=== PATIENT | male | born 1950 | race American Indian/Alaskan Native ===

== ENCOUNTER → 2017-09-25 | Day surgery (SDC) | payer MEDICARE ==
[2017-09-24 09:33] VITALS: BMI 35.9
[~2017-09-25] MED LIST: LACTATED RINGERS 1,000 ML IV SCH; LIDOCAINE 1% 20 ML VIAL (10MG/ML) FOR IV START INTRADERMA ONE; PROPOFOL 10 MG/ML 20 ML VIAL IV ONE
[2017-09-25 10:15] VITALS: RESP 16; TEMP 98.3
--- NOTE | 2017-09-25 11:06 | P.PCN ---
Date of Procedure: 09/25/17 Procedure(s) Performed: BRIEF HISTORY: Patient is a 66-year-old pleasant male, scheduled for an elective colonoscopy as a part of evaluation of Hemoccult-positive stool. PROCEDURE PERFORMED: Colonoscopy. PREOPERATIVE DIAGNOSIS: Hemoccult-positive stool. IV sedation per Anesthesia. PROCEDURE: After informed consent was obtained, the patient, was brought into the endoscopy unit. IV sedation was administered by Anesthesia under continuous monitoring. Digital rectal examination was normal. Initially the Olympus CF- 160 flexible video colonoscope was then inserted in the rectum, gradually advanced into the cecum without any difficulty. Careful examination was performed as the scope was gradually being withdrawn. Ileocecal valve and the appendiceal orifice were visualized and appeared normal. Prep was excellent. Mucosa of the cecum, ascending colon, transverse colon, descending colon, sigmoid colon, and rectum appeared normal. Scattered sigmoid diverticula seen. Retroflexion was performed in the rectum and no lesions were seen. The patient tolerated the procedure well. IMPRESSION: Normal-appearing colon from rectum to cecum with no evidence of colorectal neoplasia Scattered sigmoidal diverticulosis RECOMMENDATIONS: Findings of this examination were discussed with the patient as well as his family. He was advised to have a repeat screening colonoscopy in 10 years.
[2017-09-25 11:11] VITALS: PULSE 66
[2017-09-25 11:37] VITALS: BP 116/60
== END ==
LOC: ORWHC2ENDO 09:09
PROVIDERS: ATTEND Internal Medicine Gastroenterology
DX: K57.30 Diverticulosis of large intestine without perforation or abscess without bleeding (principal); I10 Essential (primary) hypertension; E78.5 Hyperlipidemia, unspecified; G47.33 Obstructive sleep apnea (adult) (pediatric); Z79.82 Long term (current) use of aspirin; Z79.899 Other long term (current) drug therapy
CPT/HCPCS: 45378; J2704

== ENCOUNTER → 2023-10-22 | Outpatient (CLI) | payer MEDICARE ==
--- NOTE | 2023-10-22 12:12 | CT ---
EXAMINATION TYPE: CT left knee - [facility] Protocol DATE OF EXAM: 10/22/2023 COMPARISON: None HISTORY: Unilateral primary osteoarthritis, left knee CT DLP: 1231 mGycm Axial , sagittal and coronal images are obtained. There is postsurgical change involving the vertebral column is hypertrophic arthropathy of the SI ivory nts. Diverticulosis. Bilateral hypertrophic arthropathy of the hips correlate femoral head is in the abdomen. There is severe arthropathy of the medial compartment knee joint. Marginal spurring is seen involving the joint spaces. Mild arthropathy of the lateral compartment patella femoral. No erosive changes. M ild demineralization. Vascular calcifications noted there is artifact which limits evaluation soft ti ssue findings are suspicious for a Ferrara cyst measuring 5 cm trace amount of fluid is present. Athero sclerotic change is Evaluation of the ankle demonstrates well-corticated density adjacent to the medial malleolus on the right suggestive of remote trauma. IMPRESSION: 1. Severe osteoarthritis left knee. 2. Bilateral hip arthropathy correlate femoral acetabular impingement.
== END | disposition home or self-care (01) ==
LOC: RADCTMAIN 10:35
PROVIDERS: ATTEND Orthopaedic Surgery
DX: M17.12 Unilateral primary osteoarthritis, left knee (principal); M25.852 Other specified joint disorders, left hip; M25.851 Other specified joint disorders, right hip

== ENCOUNTER → 2023-10-28 | Outpatient (CLI) | payer MEDICARE ==
[2023-10-28 09:03] LABS: INR 0.9 (<1.2); Partial Thromboplastin Time 25.5 sec (22.0-30.0); Prothrombin Time 10.4 sec (10.0-12.5)
[2023-10-28 15:59] LABS: HCT 43.2 % (39.6-50.0); HGB 14.5 g/dL (13.0-17.0); MCH 34.6 pg (27.0-32.0); MCHC 33.6 g/dL (32.0-37.0); MCV 103.1 FL (80.0-97.0); NRBC Per 100 WBC 0 X 10*3/uL (0.00-0.01); Platelet Count 233 X 10*3/uL (140-440); RBC 4.19 X 10*6/uL (4.40-5.60); RDW 12.1 % (11.5-14.5); WBC 9.33 X 10*3/uL (4.50-10.00)
[2023-10-28 16:12] LABS: ALT 21 U/L (10-49); AST 22 U/L (14-35); Albumin 4.3 g/dL (3.8-4.9); Albumin/Globulin Ratio 1.48 Ratio (1.60-3.17); Alkaline Phosphatase 71 U/L (41-126); Blood Urea Nitrogen 26.4 mg/dL (9.0-27.0); Calcium 9.8 mg/dL (8.7-10.3); Carbon Dioxide 26.9 mmol/L (21.6-31.8); Chloride 103 mmol/L (96-109); Globulin 2.9 g/dL (1.6-3.3); Glucose 133 mg/dL (70-110); Sodium 139 mmol/L (135-145); Total Bilirubin 0.7 mg/dL (0.3-1.2); Total Protein 7.2 g/dL (6.2-8.2)
[2023-10-28 16:59] LABS: Appearance,Urine Clear (Clear); Bilirubin,Urine Negative (Negative); Blood,Urine Negative (Negative); Color,Urine Yellow (Yellow); Ketones,Urine Negative (Negative); Nitrite,Urine Negative (Negative); Urobilinogen,Urine 0.2 E.U./DL
== END | disposition home or self-care (01) ==
LOC: LABWHC1 07:55
PROVIDERS: ATTEND Orthopaedic Surgery
DX: Z01.818 Encounter for other preprocedural examination (principal); M17.12 Unilateral primary osteoarthritis, left knee
CPT/HCPCS: 36415; 80053; 81003; 83036; 85027; 85610; 85730; 87070; 93005

== ENCOUNTER 2023-11-15 07:33 | Day surgery (SDC) | payer MEDICARE ==
[~2023-11-15 07:33] MED LIST changes: +ACETAMINOPHEN TAB 500 MG TAB PO PRN; +DOCUSATE 100 MG CAP PO PRN; +FAMOTIDINE 20 MG/2 ML VIAL IVP PRN; +HYDROmorphone 0.5 MG/0.5 ML SYRINGE IVP PRN; +KETOROLAC 15 MG/ML 1 ML VIAL IVP PRN; -LACTATED RINGERS 1,000 ML IV SCH; -LIDOCAINE 1% 20 ML VIAL (10MG/ML) FOR IV START INTRADERMA ONE; +MIDAZOLAM 2 MG/2 ML VIAL IV PRN; +ONDANSETRON 4 MG/2 ML VIAL IVP PRN; -PROPOFOL 10 MG/ML 20 ML VIAL IV ONE; +ROPIVACAINE 246.25 MG, EPINEPHrine 0.5 MG, KETOROLAC (30 mg/mL) 30 MG, cloNIDine HCL/PF... MISCELLANE PRN; +TRANEXAMIC 1,000 MG/100ML-NACL 1,000 MG in SALINE 1 100ML.BAG IV PRN; +TRANEXAMIC 1,000 MG/100ML-NACL 1,000 MG in SALINE 1 100ML.BAG IVPB PRN; +ceFAZolin 3 GM in SODIUM CHLORIDE 0.9% 100 ML IVPB PRN; +oxyCODONE ER 10 MG TAB.ER.12H PO PRN
[2023-11-15] MEDS: DEXAMETHASONE SOD PHOSPHATE 10 MG/ML 1 ML VIAL IV PRN ×2 (08:28→08:31)
[2023-11-15] MEDS: LACTATED RINGERS 1,000 ML IV SCH ×2 (08:28→09:13)
[2023-11-15 08:31] LABS: Glucose,Whole Blood 119 mg/dL (70-110)
--- NOTE | 2023-11-15 08:52 | P.ANPRN ---
Procedure Note - Anesthesia - Nerve Block Performed Left Adductor Canal Single Time Out Performed: Yes Date of Procedure: 11/15/23 Procedure Start Time: Procedure Stop Time: Location of Patient: PreOp Indication: Acute Post-Operative Pain, Analgesia, Requested by Surgeon Sedation Type: Sedate with meaningful contact maintained Preparation: Sterile Prep Position: Supine Catheter: None Needle Types: Pajunk Needle Gauge: 21 Ultrasound used to visualize needle placement: Yes Ultrasound used to observe medication spread: Yes Injectate: 0.5% Ropivacaine (see comment for volume) (Ropiv 10ml+NS10ml) Blood Aspirated: No Pain Paresthesia on Injection Noted: No Resistance on Injection: Normal Image Stored and Saved: Yes Events: Uneventful and Well Tolerated
--- NOTE | 2023-11-15 08:54 | P.ANPRN ---
Procedure Note - Anesthesia - Nerve Block Performed Left iPack Single Time Out Performed: Yes Date of Procedure: 11/15/23 Procedure Start Time: 08:35 Procedure Stop Time: 08:40 Location of Patient: PreOp Indication: Acute Post-Operative Pain, Analgesia, Requested by Surgeon Sedation Type: Sedate with meaningful contact maintained Preparation: Sterile Prep Position: Right Lateral Needle Types: Pajunk Needle Gauge: 21 Ultrasound used to visualize needle placement: Yes Ultrasound used to observe medication spread: Yes Injectate: 0.5% Ropivacaine (see comment for volume) (Ropiv 15ml+NS10ml) Blood Aspirated: No Pain Paresthesia on Injection Noted: No Resistance on Injection: Normal Image Stored and Saved: Yes Events: Uneventful and Well Tolerated
[2023-11-15] MEDS: ROPIVACAINE/EPI/CLONIDINE/KET 50 ML SYRINGE MISCELLANE PRN ×2 (09:04→11:05)
[2023-11-15] MEDS ORDERED: LIDOCAINE 1% INJ 10MG/ML (20 ML MDV) ONE (09:17)
[2023-11-15] MEDS ORDERED: fentaNYL (PF) 50 MCG/ML 2 ML AMP ONE (09:17)
[2023-11-15] MEDS ORDERED: ROPIVACAINE 5 MG/ML 30 ML VIAL ONE (09:17)
[2023-11-15] MEDS ORDERED: NEOSTIGMINE 1 MG/ML 10 ML VIAL ONE (09:17)
[2023-11-15] MEDS ORDERED: GLYCOPYRROLATE 0.2 MG/ML 2 ML VIAL ONE (09:17)
[2023-11-15] MEDS ORDERED: TRANEXAMIC 1,000 MG/100ML-NACL PREMIX BAG ONE (09:17)
[2023-11-15] MEDS ORDERED: HYDROmorphone (PF) 1 MG/ML ONE (09:17)
[2023-11-15] MEDS ORDERED: ePHEDrine 50 MG/ML 1 ML VIAL ONE (09:17)
[2023-11-15] MEDS ORDERED: PROPOFOL 10 MG/ML 20 ML VIAL IV ONE (09:17)
[2023-11-15] MEDS ORDERED: PHENYLEPHRINE-0.9% NACL SYG 1,000 MCG/10 ML SYRINGE ONE (09:17)
[2023-11-15] MEDS ORDERED: MIDAZOLAM 2 MG/2 ML VIAL ONE (09:17)
[2023-11-15] MEDS ORDERED: SUCCINYLCHOLINE CHLORIDE 200 MG/10 ML VIAL IV ONE (09:17)
[2023-11-15] MEDS ORDERED: SODIUM CHLORIDE 0.9% (PF) 10 ML VIAL ONE (09:17)
[2023-11-15] MEDS ORDERED: ROCURONIUM 10 MG/ML (5 ML VIAL) IV ONE (09:17)
[2023-11-15] MEDS ORDERED: LACTATED RINGERS 1,000 ML IV ONE (11:37)
[2023-11-15] MEDS ORDERED: hydrOXYzine pamoate 25 MG CAP PO PRN (12:08)
[2023-11-15] MEDS ORDERED: diazePAM 5 MG TAB PO PRN (12:08)
[2023-11-15] MEDS ORDERED: HYDROmorphone 0.5 MG/0.5 ML SYRINGE IVP PRN (12:08)
[2023-11-15] MEDS ORDERED: MAGNESIUM HYDROXIDE 2,400 MG/30 ML CUP PO PRN (12:08)
[2023-11-15] MEDS ORDERED: HYDROcodone/APAP 5-325MG 1 EACH TAB PO PRN (12:08)
[2023-11-15] MEDS ORDERED: ONDANSETRON 4 MG/2 ML VIAL IVP PRN (12:08)
[2023-11-15] MEDS ORDERED: bisacodyL 10 MG SUPP RECTAL PRN (12:08)
[2023-11-15] MEDS ORDERED: NALOXONE 0.4 MG/ML 1 ML VIAL IV PRN (12:08)
--- NOTE | 2023-11-15 12:08 | P.OP ---
Date of Procedure: 11/15/23 Preoperative Diagnosis: 1. Left severe knee osteoarthritis 2. Coronary artery disease Postoperative Diagnosis: Same Procedure(s) Performed: 1. Left total knee arthroplasty 2. Computer assisted musculoskeletal navigation using CT/MRI images Implants: 1. [place] [employer] CR Femur Size #6 2. [place] [employer] Erwin Tibial Base Size #6 3. [place] [employer] CS poly Size #9 4. Verena Triathlon all poly patella, Size #38 Anesthesia: GENI, regional Surgeon: Todd Oleary Estimated Blood Loss (ml): 100 Pathology: none sent Condition: stable Disposition: PACU Indications for Procedure: I met with the patient preoperatively in the office setting and discussed treatment of their symptomatic knee arthritis. They failed a long course of nonsurgical treatment and elected to proceed with an elective total knee replacement. I discussed the potential risks and complications at length and gave them ample time to ask questions. Risks discussed included: risks from anesthesia, superficial site surgical infection, acute and/or chronic peripro sthetic joint infection, delayed wound healing, drainage, wound necrosis, instability, stiffness, stiffness requiring manipulation and/or revision surgery, damage to local blood vessels or nerves, aseptic loosening of the implants, extensor mechanism issues including disruption, patellar maltracking, avascular necrosis etc., continued or worsened knee pain, generalized dissatisfaction with surgical outcome, need for revision surgery, an inability to regain preinjury level of function, DVT, PE, other medical complications, and possibly loss of life or limb. The patient voiced their understanding that while these are the most common complications other less common complications are possible. They provided both their verbal and written consent to go forward with surgery. Operative Findings: Severe tricompartmental arthritis. During the procedure according to the anesthesia team the patient's cardiac rhythm showed a transient bundle branch block. He was otherwise stable throughout the procedure. He was evaluated intraoperatively by the attending anesthesiologist immediately following the transient bundle branch block. Description of Procedure: The patient was identified in preoperative holding and the correct operative extremity was verified and marked with a marker. I reviewed the consent form with the patient at length. All of their questions were answered. The patient was given a block by anesthesia. They were then brought back to the operating room. They were transferred onto the operating room table where a general anesthetic, preoperative antibiotics, and tranexamic acid were administered by anesthesia. A tourniquet was applied to the proximal aspect of the operative extremity. The contralateral extremity was padded under the heel and secured to the operating room table with a nonsterile blue towel and tape. The ipsilateral arm was carefully draped across the patient's chest and secured with a pillow and foam. A post was applied over the lateral aspect of the ipsilateral thigh and a bolster was placed under the ipsilateral foot. I verified that the operative extremity was stable and the knee was flexed to 90. The operative extremity was then placed in a leg treviño, nonsterile drapes were applied, and the extremity was prepped and draped sterilely in the standard sterile fashion. Prior to starting surgery timeout was performed identifying the correct patient, operative extremity, and procedure. The leg was then elevated, exsanguinated with an Esmarch bandage, and the tourniquet was inflated. An anterior midline incision was made sharply with a scalpel. Once I had dissected deep to the superficial fascial layer medial and lateral flaps were elevated. A medial parapatellar arthrotomy was created. Upon opening the knee joint there were diffuse arthritic changes in all 3 compartments. The anterior horn of the medial meniscus were sharply released and a medial release was pe rformed around the posterior medial corner of the knee to facilitate retractor placement. The fat pad was excised with electrocautery. The patella was found to be severely arthritic and a provisional cut was made with a sagittal saw to facilitate mobilization of the extensor mechanism during the procedure. Remnants of the ACL and PCL were then excised from the notch. 4 mm pins were then placed within the incision in the medial distal femur and proximal tibia. Arrays were applied to the pins and I verified they were completely tightened. The knee was then registered with the Nutrino robot and manipulations in implant position were made to balance the knee and opitmize implant position. Using the Nutrino robotic saw all cuts were made in accordance with our plan. After all bony fragments had been removed the cuts were verified with the planar probe. The tibia was then subluxed forward and sized. The knee was brought into flexion and a lamina shirring machine operator was placed to allow removal of the meniscal remnants both medially and laterally as well as posterior osteophytes. Local anesthetic was then infiltrated around the joint capsule. Trial implants were then placed within the knee. Range of motion and collateral ligament tension was then evaluated. Adjustments in implant size and position were then made accordingly. Once the knee was felt to be appropriately balanced the Merlin pins were removed. The patella was then recut, sized, and punched. A trial patellar button was then placed. With the trial components in place, the patella tracked midline. The femur was then drilled and the trial component removed. The trial tibial component was then appropriately rotated, pinned, and prepared for the keel. All trial components were then removed from the knee. The knee was thoroughly irrigated with pulsatile lavage. Cement was prepared via vacuum mixing in a bowl on the back table. I then hand pressurized cement into the femur and tibia and placed the implants beginning with the tibial base tray and poly liner, femoral component, and finally the patellar button. All extruded cement was removed including from the pin sites. Once the cement had hardened the knee was evaluated one final time with the final polyethylene liner in place. The knee had full extension and flexion and felt stable to varus and valgus stress throughout the arc of motion. The tourniquet was released and with the tourniquet down the patella tracked midline. All bleeders were controlled with electrocautery. The knee was then soaked for 3 minutes with a dilute Betadine soak. The knee was thoroughly irrigated using 3 L of sterile saline and pulsatile lavage. A deep drain was placed. The extensor mechanism was then reapproximated using pop off Vicryl sutures followed by a running barbed suture. The knee was then closed in layers with a 0 strata fix for the deep fascial layer, 2-0 strata fix for the superficial subcutaneous layer and Monocryl and Steri-Strips for the skin. A sterile dressing and drain sponge were applied. I verified that all instrument, sponge, and sharp counts were correct. The patient was then transferred off the operating room table, extubated, and brought to recovery having tolerated the procedure well. PLAN: The patient can weight-bear as tolerated on the operative extremity. DVT prophylaxis with aspirin 81 mg twice a day based on preoperative risk stratification. Based on the intraoperative bundle-branch block a postoperative internal medicine and cardiology consult will be obtained. A 12-lead EKG was obtained immediately upon entering PACU. Follow-up in the office in 2 weeks for wound check and x-rays of the knee including an AP and lateral.
--- NOTE | 2023-11-15 13:02 | XR ---
EXAMINATION TYPE: XR knee limited LT DATE OF EXAM: 11/15/2023 COMPARISON: NONE HISTORY: 72-year-old male evaluation for postoperative abnormality and alignment TECHNIQUE: 2 views FINDINGS: Images show placement of left total knee arthroplasty. Both distal femoral and proximal tib ial components of prosthesis are well seated without fracture. Alignment grossly anatomic. Anterior s oft tissue swelling with scattered soft tissue air as well as intra-articular air related to recent o peration. A surgical drain is also present. IMPRESSION: Uncomplicated postoperative appearance left total knee arthroplasty.
--- NOTE | 2023-11-15 16:14 | P.CONS ---
History of Present Illness - Reason for Consult Consult date: 11/15/23 Medical Management Requesting physician: Todd Oleary - History of Present Illness History of Presenting Illness: Patient is a very pleasant 72-year-old male with a past medical history of carotid artery stenosis, hypertension, hyperlipidemia, valvular heart disease with aortic and mitral regurgitation and osteoarthritis. Patient is currently admitted to orthopedic surgery team status post left total knee arthroplasty completed by Dr. Oleary secondary to severe left knee osteoarthritis. We were consulted for medical management throughout patient's hospitalization. Upon further evaluation and it was reported that patient had an intraoperative arrhythmia resulting in new-onset left bundle branch block. EKG completed showing sinus bradycardia at 57 bpm with a new onset left bundle branch block. Upon further review and comparison of previous EKG's, it does not appear the patient has history of left bundle branch block and patient and family deny known history. Patient reports being asymptomatic to any cardiac complaints or any complaints for that matter. Patient denies having any headache, lightheadedness, dizziness, chest pain, palpitations, shortness of breath, nausea, vomiting, or experiencing any numbness/tingling in his extremities. Patient's at bedside does report that her has been experiencing exertional shortness of breath ongoing for the past couple months and they did discuss this with his golf cart attendant during his preoperative workup but reports cardiac workup was negative and recent stress test completed earlier this month was also negative. Review of systems: Pertinent positives and negatives as discussed in HPI, a complete review of systems was performed and all other systems are negative. Physical exam: Vital signs reviewed and stable. General: Nontoxic, no distress and appears stated age. Derm: Skin warm and dry, normal coloration for ethnicity. Head: Atraumatic, normocephalic and symmetric. Eyes: EOMs intact, no lid lag, and anicteric sclera Mouth: no lip lesions, mucus membranes moist Cardiovascular: regular rate and rhythm with normal S1S2, systolic murmur, positive posterior tibial pulses bilaterally, and cap refill < 2 seconds. Lungs: Respirations even, regular, and unlabored on room air. Lungs CTA bilaterally, no rhonchi, no rales, no wheezing, and no accessory muscle usage. Abdominal: soft, nontender to palpation, no guarding, no appreciable organomegaly Ext: No gross muscle atrophy, no edema, no contractures movement and sensation intact. Postoperative dressings/Tegaderm in place to left knee currently clean dry and intact. Neuro: Speech clear, face symmetrical and CN II-XII grossly intact with no noted focal neuro deficits Psych: Alert and oriented to person, place, time, and situation. Appropriate and pleasant affect. Assessment and Plan of Care: New onset left bundle branch block -Order stat CBC, BMP, magnesium, troponin, and TSH. -Cardiology consulted, appreciate further recommendations -Order placed for continuous Telemetry monitoring -Hold propranolol and patient to continue with amlodipine/benazepril 5/20 mg nightly and pravastatin 80 mg nightly. -Order placed for Echocardiogram Status post left total knee arthroplasty Severe osteoarthritis Management per primary admitting orthopedic surgery team including DVT prophylaxis, pain management, wound/dressing changes, weightbearing, and PT/OT. Currently DVT prophylaxis with aspirin 81 mg twice daily. Hypertension Hyperlipidemia History of carotid artery stenosis History of valvular heart disease with aortic and mitral regurgitation Propranolol 20 mg twice daily is currently being held secondary to new onset left bundle branch block with sinus bradycardia. Patient to otherwise continue daily medication regimen with aspirin 81 mg daily, pravastatin 80 mg nightly, and amlodipine/benazepril 520 milligrams nightly. Data and imaging reviewed: -EKG completed showing sinus bradycardia at 57 bpm with a new onset left bundle branch block upon personal review and interpretation. Upon further review and comparison of previous EKG's in chart, it does not appear the patient has history of left bundle branch block and patient and family deny known history. -Vital signs reviewed and stable. Blood pressure 130/69, heart rate 53, respiratory rate 18, temp 98.2F, SpO2 of 97% on room air. -Upon follow-up review of ordered STAT labs including CBC/BMP/mag/troponin... CBC showing mild macrocytosis with MCV of 103.3 otherwise normal findings. BMP was unremarkable with the exception of mild prerenal azotemia with BUN of 39. Glucose 169. Magnesium normal findings at 1.9. And troponin was negative at less than 0.012. Thank you for allowing us to participate in the care of this pleasant patient. Do not hesitate to contact us with questions. Someone can be reached from the [facility] hospitalist group all hours of the day at [phone] or via perfect serve. Patient was seen independently by Nurse Practitioner. This document was prepared using [employer] dictation software. Please allow for errors in business law teacher while rare they do occur. Brandon Herrera NP rendered care for this patient independently, reviewed the findings and plan as documented in the note above. I did not physically speak with or examine the patient on this date. Past Medical History Past Medical History: Chest Pain / Angina, Hyperlipidemia, Hypertension, Osteoarthritis (OA) Additional Past Medical History / Comment(s): NO LONGER USES CPAP MACHINE (HX OF SURGERY FOR SLEEP APNEA), HX OF VERTIGO (NO PROBLEM NOW), BACK PAIN ruptured 3 discs. , EPISODE OF CHEST PAIN X1., hx STOOL TESTED POSITIVE FOR BLOOD. hx tremors. hx of ringworm to left leg - tx & gone History of Any Multi-Drug Resistant Organisms: MRSA Year Discovered:: 07/2015 MDRO Source:: rt knee Past Surgical History: Back Surgery, Joint Replacement Additional Past Surgical History / Comment(s): 08/02/15 Total R knee ., DEC-1997 TRIPLE SPINAL FUSION WITH BONE GRAFT TAKEN FROM HIS HIP rods and screws., SINUS SURGERY ,. COLONOSCOPY Past Anesthesia/Blood Transfusion Reactions: No Reported Reaction Past Psychological History: No Psychological Hx Reported Additional Psychological History / Comment(s): . Smoking Status: Never smoker Past Alcohol Use History: Occasional Past Drug Use History: None Reported - Past Family History Father Family Medical History: Myocardial Infarction ([place]) Additional Family Medical History / Comment(s): of massive heart attack Brother(s) Family Medical History: Cancer Additional Family Medical History / Comment(s): oldest brother [place], another brother of liver issues from alcohol Medications and Allergies Home Medications Medication Instructions Recorded Confirmed Type Ascorbic Acid [Vitamin C] 500 mg PO DAILY 07/26/15 11/15/23 History Fish Oil/Dha/Epa [Fish Oil 1,200 1 cap PO DAILY 07/26/15 11/15/23 History mg Fish Oil] Glucosamine Sulfate 1,200 mg PO DAILY 07/26/15 11/15/23 History Lysine 500 mg PO DAILY 07/26/15 11/15/23 History Multivitamin [Men's Multi-Vitamin] 1 tab PO DAILY 07/26/15 11/15/23 History Pravastatin Sodium [Pravachol] 80 mg PO HS 07/26/15 11/15/23 History Vitamin E (Dl,Tocopheryl Acet) 400 unit PO DAILY 07/26/15 11/15/23 History [Vitamin E (400 Iu = 180 mg)] amLODIPine BESYLATE/BENAZEPRIL 1 tab PO HS 07/26/15 11/15/23 History [Amlodipine-Benazepril 5-20 mg] Docusate [Colace] 200 mg PO DAILY 09/24/17 11/15/23 History Aspirin EC [Ecotrin Low Dose] 81 mg PO DAILY 01/12/23 11/15/23 History Cholecalciferol [Vitamin D3 (25 50 mcg PO DAILY 01/12/23 11/15/23 History Mcg = 1000 Iu)] Zinc Gluconate [Zinc] 50 mg PO DAILY 01/12/23 11/15/23 History Cinnamon Bark [Cinnamon] 2,000 mg PO DAILY 11/08/23 11/15/23 History Propranolol [Inderal] 20 mg PO BID 11/08/23 11/15/23 History Unk Vitamin K 1 tab PO DAILY 11/08/23 11/15/23 History Aspirin 81 mg PO BID #60 tab 11/15/23 Rx Diclofenac Sodium [Voltaren] 75 mg PO BID #60 tab 11/15/23 Rx Docusate [Colace] 100 mg PO BID #28 capsule 11/15/23 Rx HYDROcodone/APAP 5-325MG [Marina 1 - 2 tab PO Q6HR PRN #32 tab 11/15/23 Rx 5-325] Omeprazole 40 mg PO DAILY #30 cap 11/15/23 Rx Allergies Allergy/AdvReac Type Severity Reaction Status Date / Time No Known Allergies Allergy Verified 11/15/23 07:54 Physical Exam Osteopathic Statement: *. No significant issues noted on an osteopathic structural exam other than those noted in the History and Physical/Consult. Vitals: Vital Signs Temp Pulse Resp BP Pulse Ox 11/15/23 15:08 98.2 F 53 L 18 130/69 97 11/15/23 15:00 55 L 16 98/54 99 11/15/23 14:45 53 L 16 98/54 98 11/15/23 14:30 52 L 16 96/53 96 11/15/23 14:15 55 L 16 104/57 97 11/15/23 14:00 54 L 18 106/60 99 11/15/23 13:45 72 18 105/60 99 11/15/23 13:30 56 L 18 115/63 98 11/15/23 13:10 52 L 18 113/65 98 11/15/23 12:55 61 16 116/59 97 11/15/23 12:40 54 L 16 105/60 97 11/15/23 12:25 55 L 16 108/61 98 11/15/23 12:05 53 L 16 103/63 99 11/15/23 11:50 59 L 16 102/62 99 11/15/23 08:53 54 L 18 121/64 98 11/15/23 08:07 97.6 F 56 L 20 134/73 96 Intake and Output 11/15/23 11/15/23 11/15/23 06:59 14:59 22:59 Intake Total 1800 Output Total 200 Balance 1600 Intake: IV 1800 Output: Estimated Blood Loss 200 Other: Weight 122 kg Results CBC & Chem 7: 11/15/23 16:15 11/15/23 16:15 Labs: Abnormal Lab Results - Last 24 Hours (Table) 11/15/23 Range/Units 08:21 POC Glucose (mg/dL) 119 H (70-110) mg/dL
[2023-11-15] MEDS: ceFAZolin 3 GM in SODIUM CHLORIDE 0.9% 100 ML IVPB SCH (16:29)
[2023-11-15 17:03] LABS: Basophils % (A) 0 %; Eosinophils % (A) 0 %; HCT 41.5 % (39.0-53.0); HGB 13.9 gm/dL (13.0-17.5); Lymphocytes # (A) 0.9 k/uL (1.0-4.8); Lymphocytes % (A) 9 %; MCH 34.7 pg (25.0-35.0); MCHC 33.6 g/dL (31.0-37.0); MCV 103.3 fL (80.0-100.0); Macrocytosis Slight; Mean Platelet Volume 7.4; Monocytes # (A) 0.1 k/uL (0-1.0); Monocytes % (A) 1 %; Neutrophils # (A) 8.7 k/uL (1.3-7.7); Neutrophils % (A) 89 %; Platelet Count 204 k/uL (150-450); RBC 4.01 m/uL (4.30-5.90); RDW 12.2 % (11.5-15.5); WBC 9.8 k/uL (3.8-10.6)
[2023-11-15 17:04] LABS: African American GFR (CKD) 89 (>60 ml/min/1.73 sqM); Anion Gap 12 mmol/L; Blood Urea Nitrogen 35 mg/dL (9-20); Carbon Dioxide 24 mmol/L (22-30); Chloride 103 mmol/L (98-107); Glucose 169 mg/dL (74-99); Magnesium 1.9 mg/dL (1.6-2.3); Non-African American GFR(CKD) 77 (>60 ml/min/1.73 sqM); Sodium 139 mmol/L (137-145)
[2023-11-15] MEDS ORDERED: SENNOSIDES-DOCUSATE SODIUM 1 EACH TAB PO SCH (21:00)
[2023-11-15] MEDS ORDERED: lisinopriL 20 MG TAB PO SCH (21:00)
[2023-11-15] MEDS ORDERED: amLODIPine 5 MG TAB PO SCH (21:00)
[2023-11-15] MEDS ORDERED: PRAVASTATIN SODIUM 80 MG TAB PO SCH (21:00)
[2023-11-15] MEDS: ASPIRIN 81 MG PO SCH (21:13)
[2023-11-15] MEDS: SODIUM CHLORIDE 0.9% 1,000 ML IV SCH ×2 (21:14→23:50)
--- NOTE | 2023-11-15 21:55 | P.CRDCN ---
History of Present Illness History of present illness: HISTORY OF PRESENTING ILLNESS Patient is pleasant 72-year-old male with history of carotid artery stenosis, hypertension, hyperlipidemia, mitral regurgitation and osteoarthritis who follows with Dr. Krishnan. He has been followed for osteoarthritis and has been having progressive knee pain and therefore recommended to undergo knee surgery. He did have preoperative workup and was cleared from a cardiology standpoint for surgery. He denies any chest pain or pressure or significant shortness breath. Patient did have left bundle-branch block intraoperatively and postoperatively and therefore cardiology was recommended. Patient denies any actual chest pain or pressure or shortness breath. He states he feels his normal self. He does have strong family history of arrhythmias as well as CAD and stents and bypass and MIs and his father as well as brothers in their 60s and 70s. Currently is somewhat somnolent however answering all questions appropriately. He did have repeat EKG which shows returned to normal sinus rhythm and no significant left bundle-branch block. REVIEW OF SYSTEMS At the time of my exam: CONSTITUTIONAL: Denies fever or chills. CARDIOVASCULAR: Denies chest pain, shortness of breath, orthopnea, PND or palpitations. RESPIRATORY: Denies cough. GASTROINTESTINAL: Denies abdominal pain, diarrhea, constipation, nausea or vomiting. MUSCULOSKELETAL: Denies myalgias. NEUROLOGIC: Denies numbness, tingling or weakness. ENDOCRINE: Denies fatigue, weight change, polydipsia or polyurina. GENITOURINARY: Denies burning, hematuria or urgency with micturation. HEMATOLOGIC: Denies history of anemia or bleeding. PHYSICAL EXAMINATION Vital signs reviewed. CONSTITUTIONAL: No apparent distress. HEENT: Head is normocephalic. Pupils are equal, round. Sclerae anicteric. Mucous membranes of the mouth are moist. No JVD. No carotid bruit. CHEST EXAMINATION: Lungs are clear to auscultation. No chest wall tenderness is noted on palpation or with deep breathing. HEART EXAMINATION: Regular rate and rhythm. S1, S2 heard. No murmurs, gallops or rub. ABDOMEN: Soft, nontender. Positive bowel sounds. EXTREMITIES: 2+ peripheral pulses, no lower extremity edema and no calf tenderness. NEUROLOGIC EXAMINATION: Patient is awake, alert and oriented x3. ASSESSMENT 1. Left bundle-branch block postoperatively 2. Hypertension 3. Hyperlipidemia 4. Previous sleep apnea 5. Family history of CVA 6. Postoperative knee surgery 7. Asymptomatic sinus bradycardia PLAN Patient with transient left bundle-branch block which was asymptomatic. No significant Scarbosa's criteria to suggest acute coronary syndrome and no significant angina-type symptoms. Discussed with patient and family possible transient bundle-branch blocks which are usually asymptomatic and incidental. Continue to trend troponins for completeness sake and echocardiogram already performed. Patient does have asymptomatic sinus bradycardia and monitor on telemetry. Unless further symptomatic bradycardia restart propranolol tomorrow. Continue monitor however likely will be cleared from a cardiology standpoint 24 hours if asymptomatic. Past Medical History Past Medical History: Chest Pain / Angina, Hyperlipidemia, Hypertension, Osteoarthritis (OA) Additional Past Medical History / Comment(s): NO LONGER USES CPAP MACHINE (HX OF SURGERY FOR SLEEP APNEA), HX OF VERTIGO (NO PROBLEM NOW), BACK PAIN ruptured 3 discs. , EPISODE OF CHEST PAIN X1., hx STOOL TESTED POSITIVE FOR BLOOD. hx tremors. hx of ringworm to left leg - tx & gone History of Any Multi-Drug Resistant Organisms: MRSA Date of last positivie culture/infection: 07/2015 MDRO Source:: rt knee Past Surgical History: Back Surgery, Joint Replacement Additional Past Surgical History / Comment(s): 08/02/15 Total R knee ., DEC-1997 TRIPLE SPINAL FUSION WITH BONE GRAFT TAKEN FROM HIS HIP rods and screws., SINUS SURGERY ,. COLONOSCOPY Past Anesthesia/Blood Transfusion Reactions: No Reported Reaction Past Psychological History: No Psychological Hx Reported Additional Psychological History / Comment(s): . Smoking Status: Never smoker Past Alcohol Use History: Occasional Past Drug Use History: None Reported - Past Family History Father Family Medical History: Myocardial Infarction (HI) Additional Family Medical History / Comment(s): of massive heart attack Brother(s) Family Medical History: Cancer Additional Family Medical History / Comment(s): oldest brother HI, another brother of liver issues from alcohol Medications and Allergies Home Medications Medication Instructions Recorded Confirmed Type Ascorbic Acid [Vitamin C] 500 mg PO DAILY 07/26/15 11/15/23 History Fish Oil/Dha/Epa [Fish Oil 1,200 1 cap PO DAILY 07/26/15 11/15/23 History mg Fish Oil] Glucosamine Sulfate 1,200 mg PO DAILY 07/26/15 11/15/23 History Lysine 500 mg PO DAILY 07/26/15 11/15/23 History Multivitamin [Men's Multi-Vitamin] 1 tab PO DAILY 07/26/15 11/15/23 History Pravastatin Sodium [Pravachol] 80 mg PO HS 07/26/15 11/15/23 History Vitamin E (Dl,Tocopheryl Acet) 400 unit PO DAILY 07/26/15 11/15/23 History [Vitamin E (400 Iu = 180 mg)] amLODIPine BESYLATE/BENAZEPRIL 1 tab PO HS 07/26/15 11/15/23 History [Amlodipine-Benazepril 5-20 mg] Docusate [Colace] 200 mg PO DAILY 09/24/17 11/15/23 History Aspirin EC [Ecotrin Low Dose] 81 mg PO DAILY 01/12/23 11/15/23 History Cholecalciferol [Vitamin D3 (25 50 mcg PO DAILY 01/12/23 11/15/23 History Mcg = 1000 Iu)] Zinc Gluconate [Zinc] 50 mg PO DAILY 01/12/23 11/15/23 History Cinnamon Bark [Cinnamon] 2,000 mg PO DAILY 11/08/23 11/15/23 History Propranolol [Inderal] 20 mg PO BID 11/08/23 11/15/23 History Unk Vitamin K 1 tab PO DAILY 11/08/23 11/15/23 History Aspirin 81 mg PO BID #60 tab 11/15/23 Rx Diclofenac Sodium [Voltaren] 75 mg PO BID #60 tab 11/15/23 Rx Docusate [Colace] 100 mg PO BID #28 capsule 11/15/23 Rx HYDROcodone/APAP 5-325MG [Amigo 1 - 2 tab PO Q6HR PRN #32 tab 11/15/23 Rx 5-325] Omeprazole 40 mg PO DAILY #30 cap 11/15/23 Rx Allergies Allergy/AdvReac Type Severity Reaction Status Date / Time No Known Allergies Allergy Verified 11/15/23 07:54 Physical Exam Vitals: Vital Signs Temp Pulse Resp BP Pulse Ox 11/15/23 19:19 97.4 F L 72 17 101/62 96 11/15/23 15:08 98.2 F 53 L 18 130/69 97 11/15/23 15:00 55 L 16 98/54 99 11/15/23 14:45 53 L 16 98/54 98 11/15/23 14:30 52 L 16 96/53 96 11/15/23 14:15 55 L 16 104/57 97 11/15/23 14:00 54 L 18 106/60 99 11/15/23 13:45 72 18 105/60 99 11/15/23 13:30 56 L 18 115/63 98 11/15/23 13:10 52 L 18 113/65 98 11/15/23 12:55 61 16 116/59 97 11/15/23 12:40 54 L 16 105/60 97 11/15/23 12:25 55 L 16 108/61 98 11/15/23 12:05 53 L 16 103/63 99 11/15/23 11:50 59 L 16 102/62 99 11/15/23 08:53 54 L 18 121/64 98 11/15/23 08:07 97.6 F 56 L 20 134/73 96 Intake and Output 11/15/23 11/15/23 11/15/23 06:59 14:59 22:59 Intake Total 1800 Output Total 200 Balance 1600 Intake: IV 1800 Output: Estimated Blood Loss 200 Other: Voiding Method Toilet # Voids 0 Weight 122 kg Results 11/15/23 16:15 11/15/23 16:15 Cardiac Enzymes 11/15/23 Range/Units 16:15 Troponin I <0.012 (0.000-0.034) ng/mL CBC 11/15/23 Range/Units 16:15 WBC 9.8 (3.8-10.6) k/uL RBC 4.01 L (4.30-5.90) m/uL Hgb 13.9 (13.0-17.5) gm/dL Hct 41.5 (39.0-53.0) % Plt Count 204 (150-450) k/uL Comprehensive Metabolic Panel 11/15/23 Range/Units 16:15 Sodium 139 (137-145) mmol/L Potassium 5.0 (3.5-5.1) mmol/L Chloride 103 (98-107) mmol/L Carbon Dioxide 24 (22-30) mmol/L BUN 35 H (9-20) mg/dL Creatinine 0.97 (0.66-1.25) mg/dL Glucose 169 H (74-99) mg/dL Calcium 9.0 (8.4-10.2) mg/dL Current Medications Generic Name Dose Route Start Last Admin Trade Name Freq PRN Reason Stop Dose Admin Hydrocodone Bitart/Acetaminophen 1 each 11/15/23 12:08 Hydrocodone/Apap 5-325mg 1 Each Tab PO 12/15/23 12:09 Q6HR PRN Pain Scale 1 to 5 Hydrocodone Bitart/Acetaminophen 1 each 11/15/23 12:08 Hydrocodone/Apap 10-325mg 1 Each Tab PO 12/15/23 12:09 Q6H PRN Pain Scale 6 to 10 Amlodipine Besylate 5 mg 11/15/23 21:00 11/15/23 21:14 Amlodipine 5 Mg Tab PO Not Given HS [facility] Ascorbic Acid 500 mg 11/16/23 09:00 Ascorbic Acid 500 Mg Tab PO DAILY [facility] Aspirin 81 mg 11/15/23 21:00 11/15/23 21:13 Aspirin 81 Mg PO 12/15/23 21:01 81 mg BID [facility] Administration Bisacodyl 10 mg 11/15/23 12:08 Bisacodyl 10 Mg Supp RECTAL 12/15/23 12:09 DAILY PRN Constipation Cholecalciferol 50 mcg 11/16/23 09:00 Cholecalciferol 25 Mcg (1000 Iu) Tablet PO DAILY [facility] Diazepam 2.5 mg 11/15/23 12:08 Diazepam 5 Mg Tab PO 12/15/23 12:09 Q8HR PRN Mild Spasms Docusate Sodium 200 mg 11/16/23 09:00 Docusate 100 Mg Cap PO DAILY [facility] Hydromorphone HCl 0.5 mg 11/15/23 07:05 Hydromorphone 0.5 Mg/0.5 Ml Syringe IVP 11/15/23 23:00 Q5M PRN Phase 1 or 2 - Pain Control Hydromorphone HCl 0.5 mg 11/15/23 12:08 Hydromorphone 0.5 Mg/0.5 Ml Syringe IVP 12/15/23 12:09 Q3HR PRN Pain Scale 7 to 10 Hydroxyzine Pamoate 25 mg 11/15/23 12:08 Hydroxyzine Pamoate 25 Mg Cap PO 12/15/23 12:09 Q4HR PRN Nausea, Anxiety, Pain Control Tranexamic Acid/Sodium 100 mls @ 200 mls/hr 11/15/23 06:00 Chloride 1,000 mg/ IV Solution IVPB 11/15/23 23:00 ONCE PRN Pre-Op Tranexamic Acid/Sodium 100 mls @ 200 mls/hr 11/15/23 06:00 Chloride 1,000 mg/ IV Solution IV 11/15/23 23:00 ONCE PRN PREOP/OR Lactated Ringer's 1,000 mls @ 20 mls/hr 11/15/23 07:05 11/15/23 09:13 Lactated Ringers IV 12/15/23 07:06 1,000 mls .Q24H [facility] Administration Sodium Chloride 1,000 mls @ 100 mls/hr 11/15/23 12:15 11/15/23 21:14 Saline 0.9% IV 12/15/23 12:16 100 mls/hr .Q10H [facility] Administration Cefazolin Sodium 3 gm/ Sodium 100 mls @ 200 mls/hr 11/15/23 17:00 11/15/23 16:29 Chloride IVPB 11/16/23 01:29 200 mls/hr Q8H [facility] Administration Lisinopril 20 mg 11/15/23 21:00 11/15/23 21:13 Lisinopril 20 Mg Tab PO 20 mg HS [facility] Administration Magnesium Hydroxide 2,400 mg 11/15/23 12:08 Magnesium Hydroxide 2,400 Mg/30 Ml Cup PO 12/15/23 12:09 DAILY PRN Constipation Multivitamins 1 each 11/16/23 09:00 Multivitamins, Thera 1 Each Tab PO DAILY [facility] Naloxone HCl 0.2 mg 11/15/23 12:08 Naloxone 0.4 Mg/Ml 1 Ml Vial IV 12/15/23 12:09 Q2M PRN Opioid Reversal Ondansetron HCl 4 mg 11/15/23 12:08 Ondansetron 4 Mg/2 Ml Vial IVP 12/15/23 12:09 Q8HR PRN Nausea And Vomiting Pravastatin Sodium 80 mg 11/15/23 21:00 11/15/23 21:13 Pravastatin Sodium 80 Mg Tab PO 80 mg HS [facility] Administration Senna/Docusate Sodium 2 each 11/15/23 21:00 11/15/23 21:13 Sennosides-Docusate Sodium 1 Each Tab PO 12/15/23 21:01 2 each HS [facility] Administration Temazepam 15 mg 11/15/23 22:00 Temazepam 15 Mg Cap PO 12/15/23 22:01 2200 PRN Insomnia Zinc Sulfate 220 mg 11/16/23 09:00 Zinc Sulfate 220 Mg Cap PO DAILY [facility] Intake and Output 11/15/23 11/15/23 11/15/23 06:59 14:59 22:59 Intake Total 1800 Output Total 200 Balance 1600 Intake: IV 1800 Output: Estimated Blood Loss 200 Other: Voiding Method Toilet # Voids 0 Weight 122 kg Patient Weight 11/16/23 06:59 Weight 122 kg 11/15/23 16:15 11/15/23 16:15
[2023-11-15] MEDS ORDERED: TEMAZEPAM 15 MG CAP PO PRN (22:00)
[2023-11-15] MEDS: HYDROcodone/APAP 10-325MG 1 EACH TAB PO PRN (23:32)
[2023-11-16] MEDS: ceFAZolin 3 GM in SODIUM CHLORIDE 0.9% 100 ML IVPB SCH (00:44)
[2023-11-16 02:40] VITALS: RESP 18
[2023-11-16] MEDS: ASPIRIN 81 MG PO SCH (07:37)
--- NOTE | 2023-11-16 08:31 | P.PN ---
Subjective Progress Note Date: 11/16/23 Patient is doing well this morning. The pain in his left knee is relatively well controlled. He denies chest pain or shortness of breath. He has no recollection of the cardiac workup yesterday. Objective - Vital Signs Vital signs: Vital Signs Temp 97.5 F L 11/16/23 01:41 Pulse 58 L 11/16/23 01:41 Resp 18 11/16/23 01:41 BP 110/65 11/16/23 01:41 Pulse Ox 95 11/16/23 01:41 FiO2 Intake & Output 11/15/23 11/16/23 11/16/23 18:59 06:59 18:59 Intake Total 1800 Output Total 200 120 Balance 1600 -120 Weight 122 kg Intake: IV 1800 Output: Drainage 120 Left Knee 120 Estimated Blood Loss 200 Other: Voiding Method Toilet # Voids 0 1 - Exam Patient is sitting up at bedside. Is alert and able to answer questions. He demonstrates nonlabored breathing with symmetric chest expansion. A focused exam of the left lower extremity was conducted. On inspection he has an intact dressing with no drainage or strike through. His Hemovac drain was in place and easily removed. There is mild swelling. His thigh and calf are soft. Motor and sensory function are intact. He is able to perform a straight leg raise. - Labs CBC & Chem 7: 11/15/23 16:15 11/15/23 16:15 Labs: Abnormal Lab Results - Last 24 Hours (Table) 11/15/23 11/15/23 11/15/23 Range/Units 08:21 16:15 16:15 RBC 4.01 L (4.30-5.90) m/uL MCV 103.3 H (80.0-100.0) fL Neutrophils # 8.7 H (1.3-7.7) k/uL Lymphocytes # 0.9 L (1.0-4.8) k/uL BUN 35 H (9-20) mg/dL Glucose 169 H (74-99) mg/dL POC Glucose (mg/dL) 119 H (70-110) mg/dL Assessment and Plan Assessment: Postoperative day #1 status post left total knee replacement, doing well Transient bundle-branch block Coronary artery disease Plan: 1. Weight-bear as tolerated left lower extremity, up with assistance and a walker 2. 2 doses postoperative antibiotics 3. DVT prophylaxis with aspirin 81 mg twice a day 30 days 4. Physical therapy for gait training 5. Appreciate internal medicine and cardiology's assistance with perioperative medical management particularly his bundle-branch block 6. Leave surgical dressing in place 7. Dispo: The patient is doing well from an orthopedic standpoint. If he passes physical therapy and is medically stable and cleared by both internal medicine and perioperative medical management we'll plan on discharging him home later this afternoon
--- NOTE | 2023-11-16 08:33 | P.DS ---
Providers Date of admission: 11/15/2023 Attending physician: Todd Oleary Consults: 11/15/23 12:08 Consult Physician Routine Consulting Provider: Ana Estrada Consult Reason/Comments: post op medical management Do you want consulting provider notified?: Yes 11/15/23 12:11 Consult Physician Stat Consulting Provider: Garett Krishnan Consult Reason/Comments: intraop cardiac arrhythmia, known patient Do you want consulting provider notified?: Yes Primary care physician: Jake Ramírez Hospital Course: The patient is a very pleasant 72-year-old male with multiple medical problems including stable coronary artery disease who was admitted under my care and underwent an uncomplicated left total knee replacement. During surgery he was found to have a bundle branch block. Following surgery and the recovery room he had an EKG and was managed and evaluated by both internal medicine and cardiology. His workup including a 12-lead EKG, serial troponins, and an echocardiogram were all relatively normal. On postoperative day #1 the patient was doing well. He denied chest pain or shortness of breath. His Hemovac drain was removed. He had minimal pain in his knee. He did well and was ultimately cleared for discharge home. Plan - Discharge Summary Discharge Rx Participant: No New Discharge Prescriptions: New Aspirin 81 mg PO BID #60 tab HYDROcodone/APAP 5-325MG [Quinault 5-325] 1 - 2 tab PO Q6HR PRN #32 tab PRN Reason: Pain Docusate [Colace] 100 mg PO BID #28 capsule Diclofenac Sodium [Voltaren] 75 mg PO BID #60 tab Omeprazole 40 mg PO DAILY #30 cap No Action Vitamin E (Dl,Tocopheryl Acet) [Vitamin E (400 Iu = 180 mg)] 400 unit PO DAILY Ascorbic Acid [Vitamin C] 500 mg PO DAILY amLODIPine BESYLATE/BENAZEPRIL [Amlodipine-Benazepril 5-20 mg] 1 tab PO HS Pravastatin Sodium [Pravachol] 80 mg PO HS Multivitamin [Men's Multi-Vitamin] 1 tab PO DAILY Lysine 500 mg PO DAILY Glucosamine Sulfate 1,200 mg PO DAILY Fish Oil/Dha/Epa [Fish Oil 1,200 mg Fish Oil] 1 cap PO DAILY Docusate [Colace] 200 mg PO DAILY Aspirin EC [Ecotrin Low Dose] 81 mg PO DAILY Unk Vitamin K 1 tab PO DAILY Cinnamon Bark [Cinnamon] 2,000 mg PO DAILY Cholecalciferol [Vitamin D3 (25 Mcg = 1000 Iu)] 50 mcg PO DAILY Zinc Gluconate [Zinc] 50 mg PO DAILY Propranolol [Inderal] 20 mg PO BID Discharge Medication List Ascorbic Acid [Vitamin C] 500 mg PO DAILY 07/26/15 [History] Fish Oil/Dha/Epa [Fish Oil 1,200 mg Fish Oil] 1 cap PO DAILY 07/26/15 [History] Glucosamine Sulfate 1,200 mg PO DAILY 07/26/15 [History] Lysine 500 mg PO DAILY 07/26/15 [History] Multivitamin [Men's Multi-Vitamin] 1 tab PO DAILY 07/26/15 [History] Pravastatin Sodium [Pravachol] 80 mg PO HS 07/26/15 [History] Vitamin E (Dl,Tocopheryl Acet) [Vitamin E (400 Iu = 180 mg)] 400 unit PO DAILY 07/26/15 [History] amLODIPine BESYLATE/BENAZEPRIL [Amlodipine-Benazepril 5-20 mg] 1 tab PO HS 07/26/15 [History] Docusate [Colace] 200 mg PO DAILY 09/24/17 [History] Aspirin EC [Ecotrin Low Dose] 81 mg PO DAILY 01/12/23 [History] Cholecalciferol [Vitamin D3 (25 Mcg = 1000 Iu)] 50 mcg PO DAILY 01/12/23 [History] Zinc Gluconate [Zinc] 50 mg PO DAILY 01/12/23 [History] Cinnamon Bark [Cinnamon] 2,000 mg PO DAILY 11/08/23 [History] Propranolol [Inderal] 20 mg PO BID 11/08/23 [History] Unk Vitamin K 1 tab PO DAILY 11/08/23 [History] Aspirin 81 mg PO BID #60 tab 11/15/23 [Rx] Diclofenac Sodium [Voltaren] 75 mg PO BID #60 tab 11/15/23 [Rx] Docusate [Colace] 100 mg PO BID #28 capsule 11/15/23 [Rx] HYDROcodone/APAP 5-325MG [Quinault 5-325] 1 - 2 tab PO Q6HR PRN #32 tab 11/15/23 [Rx] Omeprazole 40 mg PO DAILY #30 cap 11/15/23 [Rx] Follow up Appointment(s)/Referral(s): Todd Oleary MD [Medical Doctor] - 2 Weeks Activity/Diet/Wound Care/Special Instructions: 1. Weight-bear as tolerated on your operative extremity unless instructed otherwise. Use a walker or other assistive device to ambulate. 2. Leave surgical dressing in place. If your dressing becomes saturated with blood, there is drainage, or the dressing becomes loose please contact the office. 3. It is okay to shower with your surgical dressing, but do not submerge in water (no hot tubs, bath's, swimming etc.) 4. Make sure to take her blood clot prevention medication as prescribed (aspirin, Eliquis, Xarelto, and Plavix are commonly prescribed medications for blood clot prevention) 5. While taking Quinault or Percocet for pain make sure you're taking a stool softener (Colace) and drink lots of water. 6. Keep all follow-up appointments as scheduled. You will usually be seen in 1-2 weeks following surgery. 7. Please contact the office with any questions or concerns [phone] Discharge Disposition: HOME SELF-CARE
[2023-11-16] MEDS: LACTATED RINGERS 1,000 ML IV SCH (08:43)
[2023-11-16] MEDS: SODIUM CHLORIDE 0.9% 1,000 ML IV SCH (08:43)
[2023-11-16] MEDS ORDERED: ZINC SULFATE 220 MG CAP PO SCH (09:00)
[2023-11-16] MEDS ORDERED: PROPRANOLOL 20 MG TAB PO SCH (09:00)
[2023-11-16] MEDS ORDERED: MULTIVITAMINS, THERA 1 EACH TAB PO SCH (09:00)
[2023-11-16] MEDS ORDERED: DOCUSATE 100 MG CAP PO SCH (09:00)
[2023-11-16] MEDS ORDERED: ASCORBIC ACID 500 MG TAB PO SCH (09:00)
[2023-11-16] MEDS ORDERED: CHOLECALCIFEROL 25 MCG (1000 IU) TABLET PO SCH (09:00)
[2023-11-16 09:38] VITALS: BP 118/72; PULSE 65; TEMP 97.7
--- NOTE | 2023-11-16 09:57 | P.PN ---
Progress Note - Text Progress Note Date: 11/16/23 Adequate analgesia. Pt. doing well. No anesthetic complication.
[2023-11-16 10:12] LABS: Basophils # (A) 0.03 X 10*3/uL (0.00-0.10); Basophils % (A) 0.2 %; Eosinophils # (A) 0 X 10*3/uL (0.04-0.35); Eosinophils % (A) 0 %; HCT 37.7 % (39.6-50.0); HGB 12.4 g/dL (13.0-17.0); Lymphocytes # (A) 1.63 X 10*3/uL (0.90-5.00); Lymphocytes % (A) 9.2 %; MCH 34.3 pg (27.0-32.0); MCHC 32.9 g/dL (32.0-37.0); MCV 104.1 FL (80.0-97.0); Mean Platelet Volume 9.9 FL (9.5-12.2); Monocytes # (A) 1.26 X 10*3/uL (0.20-1.00); Monocytes % (A) 7.1 %; NRBC Per 100 WBC 0 X 10*3/uL (0.00-0.01); Neutrophils # (A) 14.71 X 10*3/uL (1.80-7.70); Neutrophils % (A) 82.9 %; Platelet Count 191 X 10*3/uL (140-440); RBC 3.62 X 10*6/uL (4.40-5.60); RDW 12.1 % (11.5-14.5); WBC 17.73 X 10*3/uL (4.50-10.00)
--- NOTE | 2023-11-16 11:30 | CA ---
Transthoracic Echo Report Name: Rashard Ortiz Age: 72 Gender: M : 1950 Exam Date: 11/15/2023 16:41 Exam Location: [facility] Ht (in): 72 Wt (lb): 268 Ordering Physician: Brandon Herrera Attending/Referring Phys: Undercar Specialist Maddi Ch RDCS Procedure CPT: Indications: new onset LBBB Cardiac Hx: Technical Quality: Technically difficult study Contrast 1: Definity Total Dose (mL): 2 Contrast 2: Total Dose (mL): MEASUREMENTS (Male / Female) Normal Values 2D ECHO LV Diastolic Diameter PLAX 3.6 cm 4.2 - 5.9 / 3.9 - 5.3 cm LV Systolic Diameter PLAX 2.6 cm IVS Diastolic Thickness 1.0 cm 0.6 - 1.0 / 0.6 - 0.9 cm LVPW Diastolic Thickness 1.3 cm 0.6 - 1.0 / 0.6 - 0.9 cm LV Relative Wall Thickness 0.6 RV Internal Dim ED PLAX 3.2 cm LA Systolic Diameter LX 3.5 cm 3.0 - 4.0 / 2.7 - 3.8 cm LV Diastolic Volume MOD BP 61.6 cm??? 67 - 155 / 56 - 104 cm??? LV Systolic Volume MOD BP 17.6 cm??? 22 - 58 / 19 - 49 cm??? LV Ejection Fraction MOD BP 71.5 % >= 55 % LV Cardiac Index MOD BP 1341.0 cm???/min???m??? LV Diastolic Volume MOD 4C 61.1 cm??? LV Systolic Volume MOD 4C 16.7 cm??? LV Ejection Fraction MOD 4C 72.7 % LV Cardiac Index MOD 4C 1351.8 cm???/min???m??? LV Diastolic Length 4C 8.1 cm LV Systolic Length 4C 6.9 cm LV Diastolic Volume MOD 2C 62.0 cm??? LV Systolic Volume MOD 2C 18.2 cm??? LV Ejection Fraction MOD 2C 70.7 % LV Cardiac Index MOD 2C 1334.4 cm???/min???m??? LV Diastolic Length 2C 8.1 cm LV Systolic Length 2C 7.2 cm LA Volume 52.5 cm??? 18 - 58 / 22 - 52 cm??? LA Volume Index 20.7 cm???/m??? 16 - 28 cm???/m??? M-MODE Aortic Root Diameter MM 3.4 cm AV Cusp Separation MM 2.4 cm DOPPLER AV Peak Velocity 170.4 cm/s AV Peak Gradient 11.6 mmHg AI Peak Velocity 316.6 cm/s AI Peak Gradient 40.1 mmHg AI Pressure Half Time 949.2 ms MV Area PHT 2.9 cm??? Mitral E Point Velocity 76.5 cm/s Mitral A Point Velocity 72.8 cm/s Mitral E to A Ratio 1.1 MV Deceleration Time 266.2 ms MV E' Velocity 7.1 cm/s Mitral E to MV E' Ratio 10.8 FINDINGS Left Ventricle Left ventricular ejection fraction is estimated at 55-60 %. Small left ventricular cavity. Left ventricular wall thickness normal. Right Ventricle Normal right ventricular size. Unable to estimate the right ventricular systolic pressure. Right Atrium Normal right atrial size. Left Atrium Normal left atrial size. Mitral Valve Structurally normal mitral valve. No mitral stenosis, regurgitation or prolapse. Aortic Valve Trileaflet aortic valve. No aortic stenosis. Mild aortic regurgitation. Tricuspid Valve Structurally normal tricuspid valve. No tricuspid stenosis, regurgitation or prolapse. Pulmonic Valve Structurally normal pulmonic valve. Mild pulmonic regurgitation. Pericardium No pericardial effusion. Aorta Normal size aortic root and proximal ascending aorta. CONCLUSIONS Left ventricular ejection fraction 55-60% No mitral regurgitation Mild aortic regurgitation No pericardial effusion Previewed by: Dr. Angelito Cross DO (Electronically Signed) Final Date: 16 November 2023 11:28
--- NOTE | 2023-11-16 11:32 | P.PN ---
Subjective Progress Note Date: 11/16/23 History of Presenting Illness: Patient is a very pleasant 72-year-old male with a past medical history of carotid artery stenosis, hypertension, hyperlipidemia, valvular heart disease w ith aortic and mitral regurgitation and osteoarthritis. Patient is currently admitted to orthopedic surgery team status post left total knee arthroplasty completed by Dr. Oleary secondary to severe left knee osteoarthritis. We were consulted for medical management throughout patient's hospitalizatio and for reports of an intraoperative arrhythmia resulting in asymptomatic new-onset left bundle branch block. EKG completed showing sinus bradycardia at 57 bpm with a new onset left bundle branch block. Left bundle branch block was new onset but was only transient and has completely resolved. Left bundle branch block believed to be an incidental finding secondary to reaction to anesthesia, patient remains asymptomatic. He was evaluated by falafel cart cook and echocardiogram was completed. Physical exam: Patient seen and fully evaluated at bedside this morning. Patient resting comfortably sitting in the chair at bedside. Patient reports he feels great and is ready to go home. Patient denies having any complaints including headache, lightheadedness, dizziness, chest pain, palpitations, shortness of breath, or experiencing any numbness/tingling/weakness in his extremities. Patient's family at bedside also denied any questions or concerns at this time. Vital signs reviewed and stable. General: Nontoxic, no distress and appears stated age. Derm: Skin warm and dry, normal coloration for ethnicity. Head: Atraumatic, normocephalic and symmetric. Eyes: EOMs intact, no lid lag, and anicteric sclera Mouth: no lip lesions, mucus membranes moist Cardiovascular: regular rate and rhythm with normal S1S2, systolic murmur, positive posterior tibial pulses bilaterally, and cap refill < 2 seconds. Lungs: Respirations even, regular, and unlabored on room air. Lungs CTA bilater ally, no rhonchi, no rales, no wheezing, and no accessory muscle usage. Abdominal: soft, nontender to palpation, no guarding, no appreciable organomegaly Ext: No gross muscle atrophy, no edema, no contractures movement and sensation intact. Postoperative dressings/Tegaderm in place to left knee currently clean dry and intact. Neuro: Speech clear, face symmetrical and CN II-XII grossly intact with no noted focal neuro deficits Psych: Alert and oriented to person, place, time, and situation. Appropriate and pleasant affect. Assessment and Plan of Care: Postsurgical Transient left bundle branch block, likely adverse reaction to anesthesia. Resolved. Asymptomatic bradycardia -Cardiology consulted, reviewed documentation in chart. Patient's LBBB was only transient during postoperative period and patient was asymptomatic. If echocardiogram is normal and patient remains asymptomatic may discharge home this afternoon from cardiac standpoint. -Patient to continue Telemetry monitoring -Okayed by cardiology for patient to resume propranolol 20 mg twice a day and continue with amlodipine/benazepril 5/20 mg nightly and pravastatin 80 mg nightly. -Echocardiogram was completed and currently pending results. Status post left total knee arthroplasty Severe osteoarthritis Management per primary admitting orthopedic surgery team including DVT prophylaxis, pain management, wound/dressing changes, weightbearing, and PT/OT. Currently DVT prophylaxis with aspirin 81 mg twice daily. Hypertension Hyperlipidemia History of carotid artery stenosis History of valvular heart disease with aortic and mitral regurgitation Patient to continue daily medication regimen with aspirin 81 mg daily, propranolol 20 mg twice a day, pravastatin 80 mg nightly, and amlodipine/benazepril 520 milligrams nightly. Data and imaging reviewed: -Vital signs reviewed and stable. Blood pressure 118/72, heart rate 65, respiratory rate 18, temp 97.7F, SpO2 of 97% on room air. -TSH normal findings at 0.687. From a medical perspective, patient may be cleared for discharge this afternoon from medical standpoint and per documented cardiac perspective, if he remains asymptomatic from any cardiac complaints and echocardiogram is normal. Thank you for allowing us to participate in the care of this pleasant patient. Do not hesitate to contact us with questions. Someone can be reached from the [facility] hospitalist group all hours of the day at [phone] or via [employer]. Patient was seen independently by Nurse Practitioner. This document was prepared using [employer] dictation software. Please allow for errors in email producer while rare they do occur. Brandon Herrera NP rendered care for this patient independently, reviewed the findings and plan as documented in the note above. I did not physically speak with or examine the patient on this date. Objective - Vital Signs Vital signs: Vital Signs Temp 97.5 F L 11/16/23 01:41 Pulse 58 L 11/16/23 01:41 Resp 18 11/16/23 01:41 BP 110/65 11/16/23 01:41 Pulse Ox 95 11/16/23 01:41 FiO2 Intake & Output 11/15/23 11/16/23 11/16/23 18:59 06:59 18:59 Intake Total 1800 Output Total 200 120 Balance 1600 -120 Weight 122 kg Intake: IV 1800 Output: Drainage 120 Left Knee 120 Estimated Blood Loss 200 Other: Voiding Method Toilet # Voids 0 1 - Labs CBC & Chem 7: 11/16/23 06:16 11/15/23 16:15 Labs: Abnormal Lab Results - Last 24 Hours (Table) 11/15/23 11/15/23 11/15/23 Range/Units 08:21 16:15 16:15 RBC 4.01 L (4.30-5.90) m/uL MCV 103.3 H (80.0-100.0) fL Neutrophils # 8.7 H (1.3-7.7) k/uL Lymphocytes # 0.9 L (1.0-4.8) k/uL BUN 35 H (9-20) mg/dL Glucose 169 H (74-99) mg/dL POC Glucose (mg/dL) 119 H (70-110) mg/dL
[2023-11-16] MEDS: HYDROcodone/APAP 10-325MG 1 EACH TAB PO PRN (13:16)
== END 2023-11-16 13:35 | disposition home or self-care (01) ==
LOC: OR 07:33 → 4SSUR 13:35 → OR 11-16 13:35
PROVIDERS: ATTEND Orthopaedic Surgery
DX: M17.12 Unilateral primary osteoarthritis, left knee (principal); I25.10 Atherosclerotic heart disease of native coronary artery without angina pectoris; I10 Essential (primary) hypertension; E78.5 Hyperlipidemia, unspecified; I34.0 Nonrheumatic mitral (valve) insufficiency; I44.7 Left bundle-branch block, unspecified; G47.30 Sleep apnea, unspecified; Z79.899 Other long term (current) drug therapy; Z79.82 Long term (current) use of aspirin; Z82.49 Family history of ischemic heart disease and other diseases of the circulatory system
CPT/HCPCS: 0055T; 27447; 64447; 64999; 80048; 83735; 84443; 84484; 85025; 93005; 93306

== ENCOUNTER → 2024-09-03 | Outpatient (CLI) | payer MEDICARE ==
--- NOTE | 2024-09-03 17:31 | US ---
EXAMINATION TYPE: US carotid duplex BILAT DATE OF EXAM: 09/03/2024 COMPARISON: NONE CLINICAL INDICATION: Male, 73 years old with history of I65.29 OCCLUSION AND STENOSIS OF UNSPECIFIED CAROT; Patient denies any signs or symptoms at this time TECHNIQUE: Grayscale, color Doppler and spectral Doppler evaluation of the bilateral carotid systems and vertebral arteries.Indirect Doppler criteria was utilized. FINDINGS: EXAM MEASUREMENTS: RIGHT: Peak Systolic Velocity (PSV) cm/sec ----- Right CCA: 65 ----- Right ICA: 128 ----- Right ECA: 116 ICA/CCA ratio: 1.98 RIGHT: End Diastole cm/sec ----- Right CCA: 19 ----- Right ICA: 32 ----- Right ECA: 19 LEFT: Peak Systolic Velocity (PSV) cm/sec ----- Left CCA: 66 ----- Left ICA: 239 ----- Left ECA: 98 ICA/CCA ratio: 3.63 LEFT: End Diastole cm/sec ----- Left CCA: 17 ----- Left ICA: 63 ----- Left ECA: 16 VERTEBRALS (direction of flow): Right Vertebral: Antegrade Left Vertebral: Antegrade Rhythm: ? WELLNESS MANAGER NOTES: Plaque seen bilateral CCA Bulbs extending into bilateral ICAs. Elevated velocities within the left ICA. Boarder line velocities on the right side IMPRESSION: Right: 50-69% stenosis of the carotid bifurcation. 50 to 69% stenosis=ICA PSV of 125 to 230 cm/s: ration 2.0 - 4.0: ICA EDV 40-100 cm/s. Left: Greater than 70% stenosis of the carotid bifurcation. Greater than 70% stenosis to near occlusion= ICA PSV > 230 cm/s: ratio > 4.0: ICA EDV > 100 cm/s. Criteria for Assigning % of Stenosis / Diameter reduction (Estimation based on the indirect measurements of the internal carotid artery velocities (ICA PSV). 1. Normal (no stenosis)=ICA PSV < 125 cm/s: ratio < 2.0: ICA EDV<40 cm/s. 2. Less than 50% stenosis=ICA PSV < 125 cm/s: ratio < 2.0: ICA EDV<40 cm/s. 3. 50 to 69% stenosis=ICA PSV of 125 to 230 cm/s: ration 2.0 ? 4.0: ICA EDV 40-100 cm/s. 4. Greater than 70% stenosis to near occlusion= ICA PSV > 230 cm/s: ratio > 4.0: ICA EDV > 100 cm/s. 5. Near occlusion= ICA PSV velocities may be low or undetectable: variable ratio and ICA EDV. 6. Total occlusion=unable to detect flow. [facility], , 09/03/2024 5:29 PM
== END | disposition home or self-care (01) ==
LOC: RADUSWWP 15:15
PROVIDERS: ATTEND Family Medicine
DX: I65.23 Occlusion and stenosis of bilateral carotid arteries (principal)
CPT/HCPCS: 93880

== ENCOUNTER → 2024-09-18 | Outpatient (CLI) | payer MEDICARE ==
[2024-09-18 13:02] LABS: African American GFR (CKD) 88 (>60 ml/min/1.73 sqM); Blood Urea Nitrogen 27 mg/dL (9-20); Non-African American GFR(CKD) 76 (>60 ml/min/1.73 sqM)
--- NOTE | 2024-09-18 16:51 | CT ---
EXAMINATION TYPE: CT angio head neck CT DLP: 385.7 mGycm, Automated exposure control for dose reduction was used. DATE OF EXAM: 09/18/2024 2:06 PM COMPARISON: CT brain C-spine 01/12/2023, carotid ultrasound 09/03/2024. CLINICAL INDICATION:Male, 73 years old with history of I65.23 OCCLUSION AND STENOSIS OF LEFT CAROTID JOE; PHH, stenosis TECHNIQUE: Axially acquired helical CT angiogram of the head and neck was obtained with contrast util izing 75 cc of Isovue-370 administered intravenously. Axial images are supplemented with 3D reconstru ctions which were post-processed at an independent workstation. NASCET criteria used. FINDINGS: CTA HEAD: No evidence of acute intracranial hemorrhage, mass effect, or midline shift. The ventricles, sulci, a nd cisterns are unremarkable. The visualized portions of the internal carotid arteries, middle cerebral arteries, anterior cerebral arteries, and posterior cerebral arteries are patent. The basilar and vertebral arteries are patent. CTA NECK: Right Carotid System: The common carotid artery and external carotid artery are patent. Moderate atherosclerotic plaque wit hin the proximal right internal carotid artery. There is approximately 70% stenosis secondary to calc ified plaque involving the proximal right internal carotid artery. The remaining portions of the inte rnal carotid artery demonstrate normal size without significant narrowing. Left Carotid System: The common carotid artery and external carotid artery are patent. Moderate to severe atherosclerotic plaque involving the proximal internal carotid artery. Approximately 90% stenosis of the proximal int ernal carotid artery secondary to calcified and noncalcified plaque. The remaining portions of the in ternal carotid artery demonstrate normal size without significant narrowing. Vertebral arteries are patent without evidence hemodynamically significant stenosis. Vertebral arteri es are codominant. The visualized portions of the great vessels are patent. No evidence of hemodynamically significant s tenosis. Multilevel degenerative changes of the cervical spine. IMPRESSION: 1. Advanced at this carotid plaque within the bilateral internal carotid arteries proximally. Approxi mately 90% stenosis of the proximal left internal carotid artery secondary to calcified and noncalcif ied plaque. Approximately 70% stenosis of the proximal right internal carotid artery secondary to adeel cified plaque. 2. No evidence of intracranial high-grade stenosis or intracranial aneurysm. [facility], , 09/18/2024 4:49 PM
== END | disposition home or self-care (01) ==
LOC: RADCTMAIN 12:24
PROVIDERS: ATTEND Family Medicine
DX: I65.23 Occlusion and stenosis of bilateral carotid arteries (principal)
CPT/HCPCS: 82565; 84520; 70496; 70498; 36415; Q9967